=== PATIENT | female | born 1965 | race African-American/Black ===

== ENCOUNTER 2025-01-01 08:05 | Observation (INO) | payer BC ==
[2025-01-01] MEDS ORDERED: ADENOSINE 6 MG/2 ML VIAL IVPUSH ONE (20:53)
[2025-01-01] MEDS: SODIUM CHLORIDE 0.9% 500 ML INFUS.BAG IV ONE (21:15)
[2025-01-01 21:20] LABS: ABSOLUTE IMMATURE GRANULOCYTES 0.02 x10^3/uL (0.0-0.031); BASOPHILS # 0.03 x10^3/uL (0.01-0.08); EOSINOPHIL % 1.8 % (0.7-5.8); EOSINOPHILS # 0.11 x10^3/uL (0.04-0.36); MCHC 31.2 g/dl (32.2-35.5); MEAN CELL VOLUME 76.4 fl (79.4-94.8); MEAN PLT VOLUME 9.9 fl (9.4-12.3); MONOCYTE # 0.37 x10^3/uL (0.24-0.86); MONOCYTE % 6.0 % (4.7-12.5); RDW 15.9 % (12.3-16.6)
[2025-01-01 21:31] LABS: INR 1.12 (0.83-1.09); PROTHROMBIN TIME (PATIENT) 12.2 SEC (9.7-13.0)
[2025-01-01 21:41] LABS: GLUCOSE,RANDOM 99.0 mg/dL (74-106); TOT PROT 7.4 g/dl (6.4-8.2)
[2025-01-01 21:42] LABS: CO2 22.0 mmol/L (21-32)
[2025-01-01 21:44] LABS: ALK PHOS 168.0 U/L (40-150)
[2025-01-01 21:46] LABS: CREATININE 0.91 mg/dL (0.55-1.3); SGOT/AST 34.0 U/L (5-34); SGPT/ALT 21.0 U/L (0-55)
[2025-01-01 21:53] LABS: N-TERMINAL BNP 129.7 pg/mL (0-299.9)
[2025-01-01 22:07] LABS: HCV DIAGNOSTIC IN-HOUSE W/RFLX NON-REACTIVE (NONREACTIVE)
[2025-01-01 22:09] LABS: HIV INTERPRETATION NEGATIVE (NEGATIVE)
[2025-01-01] MEDS ORDERED: LABETALOL HCL 20 MG/4 ML VIAL ONE (22:17)
[2025-01-01] MEDS ORDERED: ACETAMINOPHEN INJECTION 100 ML ONE (22:17)
[2025-01-01] MEDS: ACETAMINOPHEN 1000 MG/100 ML BAG IVPB ONE (22:28)
[2025-01-01] MEDS: LABETALOL HCL 20 MG/4 ML VIAL IVPUSH ONE (22:28)
[2025-01-01] MEDS ORDERED: METOCLOPRAMIDE HCL INJECTION 10 MG/2 ML VIAL ONE (23:21)
[2025-01-01] MEDS: METOCLOPRAMIDE HCL INJECTION 10 MG/2 ML VIAL IVPB ONE (23:30)
[2025-01-02] MEDS ORDERED: CEFTRIAXONE 1 GM/50 ML BAG ONE (01:07)
[2025-01-02] MEDS ORDERED: AZITHROMYCIN IVPB 500 MG/250 ML BAG IVPB ONE (01:07)
[2025-01-02] MEDS: NIFEdipine 10 MG CAPSULE (FP) PO ONE (01:23)
[2025-01-02] MEDS: AZITHROMYCIN IVPB 500 MG in DEXTROSE 5%-WATER - 250 ML IVPB ONE (01:50)
[2025-01-02 03:19] VITALS: RESP 18; BMI 39.3
[2025-01-02] MEDS: LACTATED RINGERS SOLUTION 1,000 ML/1,000 ML INFUS.BAG IV SCH (04:40)
[2025-01-02] MEDS: ACETAMINOPHEN 325 MG TABLET (FP) PO ONE (06:32)
[2025-01-02 10:18] VITALS: BP 116/66; PULSE 73; TEMP 97.9
[2025-01-02 10:46] LABS: GLUCOSE,RANDOM 81.0 mg/dL (74-106)
[2025-01-02 10:48] LABS: CO2 24.0 mmol/L (21-32)
[2025-01-02 10:52] LABS: CREATININE 0.75 mg/dL (0.55-1.3)
[2025-01-02] MEDS ORDERED: AMOX TR/POT CLAV 875MG/125MG TABLETS (FP) PO SCH (17:30)
== END 2025-01-02 13:26 | disposition home or self-care (01) ==
LOC: JER 20:34 → JERBED 01-02 00:52 → J4W 01-02 02:50
PROVIDERS: ADMIT Student in an Organized Health Care Education/Training Program; ATTEND Student in an Organized Health Care Education/Training Program
PROC: 3E03329 Introduction of Other Anti-infective into Peripheral Vein, Percutaneous Approach (ICD-10-PCS; principal; 2025-01-02)
PROC: 3E033NZ Introduction of Analgesics, Hypnotics, Sedatives into Peripheral Vein, Percutaneous Approach (ICD-10-PCS; 2025-01-02)
PROC: 3E033GC Introduction of Other Therapeutic Substance into Peripheral Vein, Percutaneous Approach (ICD-10-PCS; 2025-01-02)
PROC: 3E0337Z Introduction of Electrolytic and Water Balance Substance into Peripheral Vein, Percutaneous Approach (ICD-10-PCS; 2025-01-02)
DX: I47.10 Supraventricular tachycardia, unspecified (principal); I10 Essential (primary) hypertension; K76.0 Fatty (change of) liver, not elsewhere classified; R06.02 Shortness of breath; E66.9 Obesity, unspecified; Z96.652 Presence of left artificial knee joint; Z88.5 Allergy status to narcotic agent
CPT/HCPCS: 36415; 71045-TC-FY; 71275-TC; 76705-TC; 80048; 80053; 83735; 83880; 84443; 84484; 85025; 85610; 86803; 87389; 93005; 93010; 99285-25; G0378; Q9967